=== PATIENT | female | born 1985 | race Caucasian/White ===

== ENCOUNTER 2021-06-19 11:19 | Outpatient (CLI) | payer OTHER, SELFPAY ==
[~2021-06-19] VITALS: Ht 165.1 cm; Wt 61.8 kg
[2021-06-19 11:20] VITALS: BP 129/72
[2021-06-19] MEDS ORDERED: DICY10AM IM (11:56)
[2021-06-19] MEDS ORDERED: BENTYL PO (11:56)
[2021-06-19] MEDS ORDERED: ZOFR4TAB16 PO (11:57)
[2021-06-19] MEDS ORDERED: BUSP10TA PO (11:58)
[2021-06-19] MEDS ORDERED: BACL10TA2 PO (11:58)
[2021-06-19] MEDS ORDERED: CLON0.5T2 PO (11:58)
[2021-06-19] MEDS ORDERED: HYDR-3363 PO (11:59)
[2021-06-19] MEDS ORDERED: VEDOLIZUMAB 300 MG in NS 250 ML IV ONE (12:00)
[2021-06-19] MEDS ORDERED: diphenhydrAMINE 25MG CAP PO ONE (12:00)
[2021-06-19] MEDS ORDERED: ACETAMINOPHEN TAB 650MG DOSE (2X325MG) PO ONE (12:00)
[2021-06-19] MEDS ORDERED: ADDE20CA3 PO (12:01)
[2021-06-19] MEDS ORDERED: ENTY1INJ IV (12:01)
[2021-06-19] MEDS ORDERED: SPIR50TA4 PO (12:01)
[2021-06-19] MEDS ORDERED: MYSO50TA5 PO (12:01)
[2021-06-19] MEDS ORDERED: methylPREDNISolone 40MG 1ML VIAL IV ONE (12:20)
[2021-06-19 14:00] VITALS: BP 111/66
== END 2021-06-19 14:00 | disposition home or self-care (01) ==
LOC: M INFU 11:19
PROVIDERS: ATTEND Internal Medicine Gastroenterology
DX: K50.90 Crohn's disease, unspecified, without complications (principal)
CPT/HCPCS: 96365; 96375; J2920; J3380

== ENCOUNTER 2021-07-31 12:00 | Outpatient (CLI) | payer OTHER ==
[~2021-07-31] VITALS: Ht 165.1 cm; Wt 61.8 kg
[~2021-07-31 12:00] MED LIST: ACETAMINOPHEN TAB 650MG DOSE (2X325MG) PO ONE; ADDE20CA3 PO; BACL10TA2 PO; BENTYL PO; BUSP10TA PO; CLON0.5T2 PO; DICY10AM IM; ENTY1INJ IV; HYDR-3363 PO; MYSO50TA5 PO; SPIR50TA4 PO; VEDOLIZUMAB 300 MG in NS 250 ML IV ONE; ZOFR4TAB16 PO; diphenhydrAMINE 25MG CAP PO ONE; methylPREDNISolone 40MG 1ML VIAL IV ONE
[2021-07-31 12:12] VITALS: BP 119/66
[2021-07-31 13:45] VITALS: BP 108/66
== END 2021-07-31 13:45 | disposition home or self-care (01) ==
LOC: EDUNIT# 12:00 → M INFU 12:00
PROVIDERS: ATTEND Internal Medicine Gastroenterology
DX: K51.90 Ulcerative colitis, unspecified, without complications (principal)
CPT/HCPCS: 96365; 96375; J2920; J3380

== ENCOUNTER 2021-09-11 11:55 | Outpatient (CLI) | payer OTHER ==
[~2021-09-11] VITALS: Ht 165.1 cm; Wt 60.0 kg
[~2021-09-11 11:55] MED LIST changes: -ACETAMINOPHEN TAB 650MG DOSE (2X325MG) PO ONE; -VEDOLIZUMAB 300 MG in NS 250 ML IV ONE; -diphenhydrAMINE 25MG CAP PO ONE; -methylPREDNISolone 40MG 1ML VIAL IV ONE
[2021-09-11] MEDS ORDERED: ACETAMINOPHEN TAB 650MG DOSE (2X325MG) PO ONE (12:00)
[2021-09-11] MEDS ORDERED: VEDOLIZUMAB 300 MG in NS 250 ML IV ONE (12:00)
[2021-09-11] MEDS ORDERED: diphenhydrAMINE 25MG CAP PO ONE (12:00)
[2021-09-11] MEDS ORDERED: methylPREDNISolone 125MG 2ML VIAL IV ONE (12:00)
[2021-09-11 12:18] VITALS: BP 118/61
[2021-09-11 13:24] VITALS: BP 103/68
== END 2021-09-11 13:25 | disposition home or self-care (01) ==
LOC: M INFU 11:55
PROVIDERS: ATTEND Internal Medicine Gastroenterology
DX: K51.90 Ulcerative colitis, unspecified, without complications (principal)
CPT/HCPCS: 96365; 96375; J2930; J3380

== ENCOUNTER 2021-10-23 12:42 | Outpatient (CLI) | payer OTHER ==
[~2021-10-23] VITALS: Ht 165.1 cm; Wt 60.0 kg
[~2021-10-23 12:42] MED LIST changes: +ACETAMINOPHEN TAB 650MG DOSE (2X325MG) PO ONE; +VEDOLIZUMAB 300 MG in NS 250 ML IV ONE; +diphenhydrAMINE 25MG CAP PO ONE; +methylPREDNISolone 40MG 1ML VIAL IV ONE
[2021-10-23 13:00] VITALS: BP 134/74
[2021-10-23] MEDS ORDERED: CYMB1CAP4 PO (13:20)
[2021-10-23 14:00] VITALS: BP 115/56
== END 2021-10-23 14:00 | disposition home or self-care (01) ==
LOC: M INFU 12:42
PROVIDERS: ATTEND Internal Medicine Gastroenterology
DX: K51.90 Ulcerative colitis, unspecified, without complications (principal)
CPT/HCPCS: 96365; 96375; J2920; J3380

== ENCOUNTER 2021-12-04 12:24 | Outpatient (CLI) | payer OTHER ==
[~2021-12-04] VITALS: Ht 165.1 cm; Wt 60.0 kg
[~2021-12-04 12:24] MED LIST changes: -ACETAMINOPHEN TAB 650MG DOSE (2X325MG) PO ONE; +CYMB1CAP4 PO; -VEDOLIZUMAB 300 MG in NS 250 ML IV ONE; -diphenhydrAMINE 25MG CAP PO ONE; -methylPREDNISolone 40MG 1ML VIAL IV ONE
[2021-12-04 12:30] VITALS: BP 113/56
[2021-12-04] MEDS ORDERED: methylPREDNISolone 125MG 2ML VIAL IV ONE (12:30)
[2021-12-04] MEDS ORDERED: diphenhydrAMINE 25MG CAP PO ONE (12:30)
[2021-12-04] MEDS ORDERED: ACETAMINOPHEN TAB 650MG DOSE (2X325MG) PO ONE (12:30)
[2021-12-04] MEDS ORDERED: VEDOLIZUMAB 300 MG in NS 250 ML IV ONE (12:30)
[2021-12-04 13:40] VITALS: BP 115/57
== END 2021-12-04 13:35 | disposition home or self-care (01) ==
LOC: M INFU 12:24
PROVIDERS: ATTEND Internal Medicine Gastroenterology
DX: K51.90 Ulcerative colitis, unspecified, without complications (principal)
CPT/HCPCS: 96365; J2930; J3380

== ENCOUNTER → 2022-01-11 | Outpatient (CLI) | payer OTHER ==
[2022-01-11 13:19] LABS: BASO % 0.4 % (0.0-1.0); EOS % 0.3 % (0.0-3.0); HEMATOCRIT 44.3 % (36.0-47.0); HEMOGLOBIN 14.8 g/dl (12.0-15.5); LYMPH # 1.9 10^3/uL (1.5-5.0); LYMPH % 26.4 % (24.0-44.0); MEAN CORPUSCULAR HEMOGLOBIN 32.9 pg (27.0-33.0); MEAN CORPUSCULAR HGB CONC 33.4 g/dl (32.0-36.5); MEAN CORPUSCULAR VOLUME 98.4 fl (80.0-96.0); MONO # 0.5 10^3/uL (0.0-0.8); MONO % 6.8 % (2.0-8.0); NEUTROPHILS # 4.6 10^3/uL (1.5-8.5); NEUTROPHILS % 65.8 % (36.0-66.0); PLATELET COUNT, AUTOMATED 241 10^3/uL (150-450)
[2022-01-11 13:45] LABS: ERYTHROCYTE SEDIMENTATION RATE 1 mm/hr (0-20)
[2022-01-11 13:55] LABS: ALBUMIN 4.3 GM/DL (3.2-5.2); ALT/SGPT 19 U/L (12-78); BILIRUBIN,TOTAL 0.3 MG/DL (0.2-1.0); BLOOD UREA NITROGEN 14 MG/DL (7-18); CALCIUM LEVEL 9.6 MG/DL (8.5-10.1); CARBON DIOXIDE LEVEL 27 MEQ/L (21-32); CHLORIDE LEVEL 108 MEQ/L (98-107); CREATININE FOR GFR 0.78 MG/DL (0.55-1.30); FREE T4 0.85 NG/DL (0.76-1.46); GLOMERULAR FILTRATION RATE > 60.0 (>60); GLUCOSE, FASTING 63 MG/DL (70-100); POTASSIUM SERUM 4.6 MEQ/L (3.5-5.1); SODIUM LEVEL 140 MEQ/L (136-145); THYROID STIMULATING HORMONE 0.415 uIU/ML (0.358-3.740)
== END ==
LOC: M PLALAB 10:45
PROVIDERS: ATTEND Internal Medicine Gastroenterology
DX: K51.319 Ulcerative (chronic) rectosigmoiditis with unspecified complications (principal)

== ENCOUNTER → 2022-01-12 | Outpatient (REF) | payer OTHER | LOC: M LAB REF 12:58 | PROVIDERS: ATTEND Internal Medicine Gastroenterology | DX: K51.319 Ulcerative (chronic) rectosigmoiditis with unspecified complications (principal) ==

== ENCOUNTER 2022-01-15 12:44 | Outpatient (CLI) | payer OTHER ==
[~2022-01-15] VITALS: Ht 165.1 cm; Wt 62.2 kg
[~2022-01-15 12:44] MED LIST changes: +VEDOLIZUMAB 300 MG in NS 250 ML IV ONE
[2022-01-15 12:55] VITALS: BP 118/64
[2022-01-15 13:15] VITALS: BP 173/86
[2022-01-15 14:30] VITALS: BP_SYST 118; BP_SYST 121; BP_DIAS 64; BP_DIAS 75
== END 2022-01-15 14:30 | disposition home or self-care (01) ==
LOC: M INFU 12:44
PROVIDERS: ATTEND Internal Medicine Gastroenterology
DX: K51.90 Ulcerative colitis, unspecified, without complications (principal)
CPT/HCPCS: 96365; J3380

== ENCOUNTER 2022-02-26 12:09 | Outpatient (CLI) | payer OTHER ==
[~2022-02-26] VITALS: Ht 165.1 cm; Wt 62.2 kg
[~2022-02-26 12:09] MED LIST changes: -VEDOLIZUMAB 300 MG in NS 250 ML IV ONE
[2022-02-26] MEDS ORDERED: VEDOLIZUMAB 300 MG in NS 250 ML IV ONE (12:30)
[2022-02-26 12:40] VITALS: BP 112/66
[2022-02-26 13:22] VITALS: BP 130/69
== END 2022-02-26 13:20 | disposition home or self-care (01) ==
LOC: M INFU 12:09
PROVIDERS: ATTEND Internal Medicine Gastroenterology
DX: K51.90 Ulcerative colitis, unspecified, without complications (principal)
CPT/HCPCS: 96365; J3380

== ENCOUNTER → 2022-04-09 | Outpatient (CLI) | payer OTHER ==
[~2022-04-09] MED LIST changes: +VEDOLIZUMAB 300 MG in NS 250 ML IV ONE
[2022-04-09 12:10] VITALS: BP 128/64
[2022-04-09 13:10] VITALS: BP 109/55
== END ==
LOC: M INFU 12:00
PROVIDERS: ATTEND Internal Medicine Gastroenterology
DX: K51.919 Ulcerative colitis, unspecified with unspecified complications (principal); Z88.0 Allergy status to penicillin; Z88.2 Allergy status to sulfonamides
CPT/HCPCS: 96365; J3380

== ENCOUNTER 2022-05-22 11:20 | Outpatient (CLI) | payer OTHER ==
[~2022-05-22] VITALS: Ht 165.1 cm; Wt 62.2 kg
[~2022-05-22 11:20] MED LIST changes: -VEDOLIZUMAB 300 MG in NS 250 ML IV ONE
[2022-05-22] MEDS ORDERED: VEDOLIZUMAB 300 MG in NS 250 ML IV ONE (11:30)
[2022-05-22 11:35] VITALS: BP 128/71
[2022-05-22 12:09] VITALS: BP 130/62
== END 2022-05-22 12:10 | disposition home or self-care (01) ==
LOC: M INFU 11:20
PROVIDERS: ATTEND Internal Medicine Gastroenterology
DX: K51.90 Ulcerative colitis, unspecified, without complications (principal)
CPT/HCPCS: 96365; J3380

== ENCOUNTER 2022-07-02 11:30 | Outpatient (CLI) | payer OTHER ==
[~2022-07-02] VITALS: Ht 167.6 cm; Wt 62.2 kg
[~2022-07-02 11:30] MED LIST changes: +VEDOLIZUMAB 300 MG in NS 250 ML IV ONE
[2022-07-02 11:39] VITALS: BP 129/71
[2022-07-02 12:28] VITALS: BP 112/66
== END 2022-07-02 12:30 | disposition home or self-care (01) ==
LOC: M INFU 11:30
PROVIDERS: ATTEND Internal Medicine Gastroenterology
DX: K51.30 Ulcerative (chronic) rectosigmoiditis without complications (principal)
CPT/HCPCS: 96365; J3380

== ENCOUNTER 2022-08-13 11:35 | Outpatient (CLI) | payer OTHER ==
[~2022-08-13] VITALS: Ht 167.6 cm; Wt 62.2 kg
[2022-08-13 11:35] VITALS: BP 131/60
[~2022-08-13 11:35] MED LIST changes: -VEDOLIZUMAB 300 MG in NS 250 ML IV ONE
[2022-08-13] MEDS ORDERED: VEDOLIZUMAB 300 MG in NS 250 ML IV ONE (12:00)
[2022-08-13 12:46] VITALS: BP 122/63
== END 2022-08-13 12:45 | disposition home or self-care (01) ==
LOC: M INFU 11:35
PROVIDERS: ATTEND Internal Medicine Gastroenterology
DX: K51.90 Ulcerative colitis, unspecified, without complications (principal)
CPT/HCPCS: 96365; J3380

== ENCOUNTER 2022-09-24 11:45 | Outpatient (CLI) | payer OTHER ==
[~2022-09-24] VITALS: Ht 167.6 cm; Wt 62.2 kg
[2022-09-24 11:45] VITALS: BP 132/61
[2022-09-24] MEDS ORDERED: VEDOLIZUMAB 300 MG in NS 250 ML IV ONE (12:00)
[2022-09-24 13:15] VITALS: BP 128/62
== END 2022-09-24 13:15 | disposition home or self-care (01) ==
LOC: M INFU 11:45
PROVIDERS: ATTEND Internal Medicine Gastroenterology
DX: K51.90 Ulcerative colitis, unspecified, without complications (principal)
CPT/HCPCS: 96365; J3380

== ENCOUNTER 2022-11-08 08:30 | Outpatient (CLI) | payer OTHER ==
[~2022-11-08] VITALS: Ht 167.6 cm; Wt 62.0 kg
[~2022-11-08 08:30] MED LIST changes: +VEDOLIZUMAB 300 MG in NS 250 ML IV ONE
[2022-11-08 08:40] VITALS: BP 145/65
[2022-11-08 10:20] VITALS: BP 129/59
== END 2022-11-08 10:20 | disposition home or self-care (01) ==
LOC: M INFU 08:30
PROVIDERS: ATTEND Internal Medicine Gastroenterology
DX: K51.90 Ulcerative colitis, unspecified, without complications (principal); Z88.0 Allergy status to penicillin; Z88.2 Allergy status to sulfonamides
CPT/HCPCS: 96365; J3380

== ENCOUNTER 2022-12-17 12:00 | Outpatient (CLI) | payer OTHER ==
[~2022-12-17] VITALS: Ht 165.1 cm; Wt 62.2 kg
[2022-12-17 12:00] VITALS: BP 122/83
[2022-12-17] MEDS ORDERED: EFFE150C2 PO (12:23)
[2022-12-17] MEDS ORDERED: GABA-1171 PO (12:26)
[2022-12-17 13:00] VITALS: BP 127/71
== END 2022-12-17 13:00 | disposition home or self-care (01) ==
LOC: M INFU 12:00
PROVIDERS: ATTEND Internal Medicine Gastroenterology
DX: K51.30 Ulcerative (chronic) rectosigmoiditis without complications (principal); Z88.0 Allergy status to penicillin; Z88.2 Allergy status to sulfonamides
CPT/HCPCS: 96365; J3380

== ENCOUNTER 2023-01-28 10:39 | Outpatient (CLI) | payer OTHER ==
[~2023-01-28] VITALS: Ht 165.1 cm; Wt 63.5 kg
[~2023-01-28 10:39] MED LIST changes: +EFFE150C2 PO; +GABA-1171 PO
[2023-01-28 10:45] VITALS: BP 126/79
[2023-01-28 12:05] VITALS: BP 134/84
== END 2023-01-28 12:05 ==
LOC: M INFU 10:39
PROVIDERS: ATTEND Internal Medicine Gastroenterology
DX: K51.30 Ulcerative (chronic) rectosigmoiditis without complications (principal)
CPT/HCPCS: 96365; J3380

== ENCOUNTER 2023-03-11 10:42 | Outpatient (CLI) | payer OTHER ==
[~2023-03-11] VITALS: Ht 165.1 cm; Wt 63.0 kg
[~2023-03-11 10:42] MED LIST changes: +VEDOLIZUMAB 300 MG in NS 250 ML IV ONE
[2023-03-11 10:55] VITALS: BP 132/76; O2SAT 100
[2023-03-11 11:20] LABS: BASO % 0.4 % (0.0-1.0); EOS # 0.1 10^3/uL (0.0-0.5); EOS % 0.7 % (0.0-3.0); HEMATOCRIT 41.2 % (36.0-47.0); HEMOGLOBIN 14.3 g/dl (12.0-15.5); LYMPH # 2.6 10^3/uL (1.5-5.0); LYMPH % 27.9 % (24.0-44.0); MEAN CORPUSCULAR HEMOGLOBIN 33.2 pg (27.0-33.0); MEAN CORPUSCULAR HGB CONC 34.7 g/dl (32.0-36.5); MEAN CORPUSCULAR VOLUME 95.6 fl (80.0-96.0); MONO # 0.6 10^3/uL (0.0-0.8); MONO % 6.6 % (2.0-8.0); NEUTROPHILS % 63.9 % (36.0-66.0); PLATELET COUNT, AUTOMATED 238 10^3/uL (150-450); RED BLOOD COUNT 4.31 10^6/uL (4.00-5.40); WHITE BLOOD COUNT 9.3 10^3/uL (4.0-10.0)
[2023-03-11 11:27] LABS: ERYTHROCYTE SEDIMENTATION RATE < 1 mm/hr (0-20)
[2023-03-11 11:40] VITALS: BP 126/77; O2SAT 97
[2023-03-11 11:46] LABS: C REACTIVE PROTEIN QUANTITATIV < 0.40 MG/DL (<1.0)
[2023-03-11 11:47] LABS: ALBUMIN 4.1 G/DL (3.2-5.2); ALKALINE PHOSPHATASE 45 U/L (46-116); ALT/SGPT 18 U/L (7.0-40); AST/SGOT 16 U/L (<34); BILIRUBIN,TOTAL 0.8 MG/DL (0.3-1.2); BLOOD UREA NITROGEN 13 MG/DL (9-23); CARBON DIOXIDE LEVEL 25 MMOL/L (20-31); CHLORIDE LEVEL 101 MMOL/L (98-107); CREATININE FOR GFR 0.69 MG/DL (0.55-1.30); GLOMERULAR FILTRATION RATE > 60.0 (>60); GLUCOSE, FASTING 90 MG/DL (60-100); POTASSIUM SERUM 3.9 MMOL/L (3.5-5.1); SODIUM LEVEL 134 MMOL/L (136-145); TOTAL PROTEIN 6.8 G/DL (5.7-8.2)
== END 2023-03-11 11:50 ==
LOC: M INFU 10:42
PROVIDERS: ATTEND Internal Medicine Gastroenterology
DX: K51.30 Ulcerative (chronic) rectosigmoiditis without complications (principal); Z88.0 Allergy status to penicillin; Z88.2 Allergy status to sulfonamides
CPT/HCPCS: 36592; 80053; 83993; 85025; 85652; 86140; 96365; J3380

== ENCOUNTER → 2023-03-11 | Outpatient (REF) | payer OTHER ==
[~2023-03-11] MED LIST changes: -VEDOLIZUMAB 300 MG in NS 250 ML IV ONE
== END ==
LOC: M LAB REF 11:22
PROVIDERS: ATTEND Internal Medicine Gastroenterology
DX: K51.30 Ulcerative (chronic) rectosigmoiditis without complications (principal)

== ENCOUNTER → 2023-04-18 | Outpatient (CLI) | payer OTHER ==
[~2023-04-18] MED LIST changes: -VEDOLIZUMAB 300 MG in NS 250 ML IV ONE
[2023-04-18 14:38] LABS: BASO # 0.1 10^3/uL (0.0-0.2); BASO % 0.5 % (0.0-1.0); EOS % 0.4 % (0.0-3.0); HEMATOCRIT 46.6 % (36.0-47.0); HEMOGLOBIN 15.6 g/dl (12.0-15.5); LYMPH # 2.8 10^3/uL (1.5-5.0); MEAN CORPUSCULAR HEMOGLOBIN 32.8 pg (27.0-33.0); MEAN CORPUSCULAR HGB CONC 33.5 g/dl (32.0-36.5); MEAN CORPUSCULAR VOLUME 97.9 fl (80.0-96.0); MONO # 0.7 10^3/uL (0.0-0.8); MONO % 7.5 % (2.0-8.0); PLATELET COUNT, AUTOMATED 256 10^3/uL (150-450); RED BLOOD COUNT 4.76 10^6/uL (4.00-5.40); WHITE BLOOD COUNT 9.7 10^3/uL (4.0-10.0)
[2023-04-18 15:01] LABS: C REACTIVE PROTEIN QUANTITATIV < 0.40 MG/DL (<1.0)
[2023-04-18 15:03] LABS: RHEUMATOID FACTOR QUANT 6.3 IU/ML (<14)
[2023-04-18 15:15] LABS: ERYTHROCYTE SEDIMENTATION RATE 6 mm/hr (0-20)
== END ==
LOC: M PLALAB 11:06
PROVIDERS: ATTEND Physician Assistant
DX: M50.122 Cervical disc disorder at C5-C6 level with radiculopathy (principal)

== ENCOUNTER 2023-04-22 10:20 | Outpatient (CLI) | payer OTHER ==
[2023-04-22 10:20] VITALS: BP 122/70; O2SAT 99
[2023-04-22] MEDS ORDERED: VEDOLIZUMAB 300 MG in NS 250 ML IV ONE (10:30)
[2023-04-22 11:20] VITALS: BP 131/77; O2SAT 100
== END 2023-04-22 11:20 | disposition home or self-care (01) ==
LOC: M INFU 10:20
PROVIDERS: ATTEND Internal Medicine Gastroenterology
DX: K51.90 Ulcerative colitis, unspecified, without complications (principal); Z88.0 Allergy status to penicillin; Z88.2 Allergy status to sulfonamides
CPT/HCPCS: 96365; J3380

== ENCOUNTER 2023-07-16 16:58 | Outpatient (CLI) | payer OTHER ==
[~2023-07-16] VITALS: Ht 165.1 cm; Wt 72.0 kg
[~2023-07-16 16:58] MED LIST changes: +VEDOLIZUMAB 300 MG in NS 250 ML IV ONE
[2023-07-16] MEDS ORDERED: VEDOLIZUMAB 300 MG in NS 250 ML IV ONE (17:00)
[2023-07-16 17:05] VITALS: BP 150/83; O2SAT 99
[2023-07-16 18:18] VITALS: BP 136/69; O2SAT 97
== END 2023-07-16 18:20 ==
LOC: M INFU 16:58
PROVIDERS: ATTEND Internal Medicine Gastroenterology
DX: K51.90 Ulcerative colitis, unspecified, without complications (principal)
CPT/HCPCS: 96365; J3380

== ENCOUNTER 2023-09-02 16:10 | Outpatient (CLI) | payer OTHER ==
[~2023-09-02] VITALS: Ht 165.1 cm; Wt 68.2 kg
[~2023-09-02 16:10] MED LIST changes: -EFFE150C2 PO; +EFFE150C3 PO
[2023-09-02 16:19] VITALS: BP 122/70; O2SAT 98
[2023-09-02] MEDS ORDERED: VEDOLIZUMAB 300 MG in NS 250 ML IV ONE (17:30)
[2023-09-02 18:14] VITALS: BP 117/68; O2SAT 91
== END 2023-09-02 18:15 ==
LOC: M INFU 16:10
PROVIDERS: ATTEND Internal Medicine Gastroenterology
DX: K51.90 Ulcerative colitis, unspecified, without complications (principal)
CPT/HCPCS: 96365; J3380

== ENCOUNTER 2023-10-14 16:40 | Outpatient (CLI) | payer OTHER ==
[~2023-10-14] VITALS: Ht 165.1 cm; Wt 66.0 kg
[2023-10-14 16:50] VITALS: BP 117/65; O2SAT 96
[2023-10-14 17:49] VITALS: BP 120/80; O2SAT 97
== END 2023-10-14 17:50 | disposition home or self-care (01) ==
LOC: M INFU 16:40
PROVIDERS: ATTEND Internal Medicine Gastroenterology
DX: K51.90 Ulcerative colitis, unspecified, without complications (principal); Z88.0 Allergy status to penicillin; Z88.2 Allergy status to sulfonamides
CPT/HCPCS: 96365; J3380

== ENCOUNTER 2023-11-25 16:30 | Outpatient (CLI) | payer OTHER ==
[~2023-11-25] VITALS: Ht 165.1 cm; Wt 65.5 kg
[~2023-11-25 16:30] MED LIST changes: -VEDOLIZUMAB 300 MG in NS 250 ML IV ONE
[2023-11-25] MEDS: VEDOLIZUMAB 300 MG in NS 250 ML IV ONE (16:53)
[2023-11-25 16:58] VITALS: BP 127/82; O2SAT 97
[2023-11-25 17:33] VITALS: BP 127/72; O2SAT 99
== END 2023-11-25 17:35 ==
LOC: M INFU 16:30
PROVIDERS: ATTEND Internal Medicine Gastroenterology
DX: K51.919 Ulcerative colitis, unspecified with unspecified complications (principal)
CPT/HCPCS: 96365; J3380

== ENCOUNTER 2024-01-06 16:24 | Outpatient (CLI) | payer OTHER ==
[~2024-01-06] VITALS: Ht 165.1 cm; Wt 65.0 kg
[2024-01-06 16:32] VITALS: BP 125/77; TEMP 97.5; O2SAT 99
[2024-01-06] MEDS: VEDOLIZUMAB 300 MG in NS 250 ML IV ONE (16:45)
[2024-01-06 17:20] VITALS: BP 125/72; TEMP 97.3; O2SAT 100
== END 2024-01-06 17:20 ==
LOC: M INFU 16:24
PROVIDERS: ATTEND Internal Medicine Gastroenterology
DX: K51.919 Ulcerative colitis, unspecified with unspecified complications (principal)
CPT/HCPCS: 96365; J3380

== ENCOUNTER 2024-02-17 16:35 | Outpatient (CLI) | payer OTHER ==
[~2024-02-17] VITALS: Ht 162.6 cm; Wt 68.2 kg
[2024-02-17 16:35] VITALS: BP 135/75; O2SAT 99
[2024-02-17] MEDS: VEDOLIZUMAB 300 MG in NS 250 ML IV ONE (17:00)
[2024-02-17 17:42] VITALS: BP 129/68; O2SAT 100
== END 2024-02-17 17:45 ==
LOC: M INFU 16:35
PROVIDERS: ATTEND Internal Medicine Gastroenterology
DX: K51.90 Ulcerative colitis, unspecified, without complications (principal)
CPT/HCPCS: 96365; J3380

== ENCOUNTER 2024-03-30 16:35 | Outpatient (CLI) | payer OTHER ==
[~2024-03-30] VITALS: Ht 162.6 cm; Wt 65.5 kg
[2024-03-30 16:30] VITALS: BP 119/71; O2SAT 99
[2024-03-30] MEDS: VEDOLIZUMAB 300 MG in NS 250 ML IV ONE (16:54)
[2024-03-30 17:30] VITALS: BP 116/82; O2SAT 98
[2024-04-03] MEDS ORDERED: ESSETAB4 PO (14:13)
== END 2024-03-30 17:30 ==
LOC: M INFU 16:35
PROVIDERS: ATTEND Internal Medicine Gastroenterology
DX: K51.90 Ulcerative colitis, unspecified, without complications (principal)
CPT/HCPCS: 96365; J3380

== ENCOUNTER → 2024-04-02 | Outpatient (CLI) | payer OTHER ==
[~2024-04-02] MED LIST changes: +ESSETAB4 PO
[2024-04-02 12:13] LABS: BASO % 0.4 % (0.0-1.0); EOS # 0.1 10^3/uL (0.0-0.5); EOS % 0.5 % (0.0-3.0); HEMATOCRIT 46.4 % (36.0-47.0); HEMOGLOBIN 16.2 g/dl (12.0-15.5); LYMPH # 1.8 10^3/uL (1.5-5.0); LYMPH % 19.5 % (24.0-44.0); MEAN CORPUSCULAR HEMOGLOBIN 34.6 pg (27.0-33.0); MEAN CORPUSCULAR HGB CONC 34.9 g/dl (32.0-36.5); MEAN CORPUSCULAR VOLUME 99.1 fl (80.0-96.0); MONO # 0.5 10^3/uL (0.0-0.8); MONO % 5.5 % (2.0-8.0); NEUTROPHILS # 6.9 10^3/uL (1.5-8.5); NEUTROPHILS % 73.6 % (36.0-66.0); PLATELET COUNT, AUTOMATED 286 10^3/uL (150-450); RED BLOOD COUNT 4.68 10^6/uL (4.00-5.40); WHITE BLOOD COUNT 9.4 10^3/uL (4.0-10.0)
[2024-04-02 12:35] LABS: ERYTHROCYTE SEDIMENTATION RATE 2 mm/hr (0-20)
[2024-04-02 12:46] LABS: C REACTIVE PROTEIN QUANTITATIV < 0.40 MG/DL (<1.0)
[2024-04-02 12:48] LABS: ALBUMIN 4.5 G/DL (3.2-5.2); ALKALINE PHOSPHATASE 57 U/L (46-116); ALT/SGPT 24 U/L (7.0-40); AST/SGOT 19 U/L (<34); BILIRUBIN,TOTAL 0.7 MG/DL (0.3-1.2); BLOOD UREA NITROGEN 17 MG/DL (9-23); CARBON DIOXIDE LEVEL 28 MMOL/L (20-31); CHLORIDE LEVEL 102 MMOL/L (98-107); GLOMERULAR FILTRATION RATE > 60.0 (>60); GLUCOSE, FASTING 83 MG/DL (60-100); POTASSIUM SERUM 4.9 MMOL/L (3.5-5.1); SODIUM LEVEL 135 MMOL/L (136-145); TOTAL PROTEIN 7.7 G/DL (5.7-8.2)
== END ==
LOC: M LAB 11:33
PROVIDERS: ATTEND Internal Medicine Gastroenterology
DX: K51.30 Ulcerative (chronic) rectosigmoiditis without complications (principal)

== ENCOUNTER 2024-05-11 16:30 | Outpatient (CLI) | payer OTHER ==
[~2024-05-11] VITALS: Ht 165.1 cm; Wt 65.9 kg
[2024-05-11 16:46] VITALS: BP 133/78; O2SAT 97
[2024-05-11] MEDS: VEDOLIZUMAB 300 MG in NS 250 ML IV ONE (16:55)
[2024-05-11 17:29] VITALS: BP 129/68; O2SAT 100
== END 2024-05-11 17:34 ==
LOC: M INFU 16:30
PROVIDERS: ATTEND Internal Medicine Gastroenterology
DX: K51.90 Ulcerative colitis, unspecified, without complications (principal); Z88.1 Allergy status to other antibiotic agents; Z88.2 Allergy status to sulfonamides
CPT/HCPCS: 96365; J3380

== ENCOUNTER 2024-06-25 11:20 | Outpatient (CLI) | payer OTHER ==
[~2024-06-25] VITALS: Ht 165.1 cm; Wt 67.7 kg
[2024-06-25 11:30] VITALS: BP 136/83; O2SAT 97
[2024-06-25] MEDS: VEDOLIZUMAB 300 MG in LR 250 ML IV ONE (12:03)
[2024-06-25 12:40] VITALS: BP 124/89; O2SAT 98
[2024-06-29] MEDS ORDERED: ONDA-83 PO (08:03)
[2024-06-29] MEDS ORDERED: CONC36TA4 PO (08:03)
== END 2024-06-25 12:40 ==
LOC: M INFU 11:20
PROVIDERS: ATTEND Internal Medicine Gastroenterology
DX: K51.919 Ulcerative colitis, unspecified with unspecified complications (principal); Z88.1 Allergy status to other antibiotic agents; Z88.2 Allergy status to sulfonamides
CPT/HCPCS: 96365; J3380

== ENCOUNTER 2024-07-13 06:44 | Day surgery (SDC) | payer OTHER ==
[~2024-07-13] VITALS: Ht 163.8 cm; Wt 83.0 kg
[~2024-07-13 06:44] MED LIST changes: +CONC36TA4 PO; +NS 250 ML IV ONE; +ONDA-83 PO
[2024-07-13] MEDS ORDERED: propofoL 200 MG/20 ML VIAL As Ordered ONE (07:08)
[2024-07-13] MEDS ORDERED: dexmedeTOMIDine (4MCG/ML)200MCG/50ML BTL (PRECEDEX) As Ordered ONE (07:08)
[2024-07-13] MEDS ORDERED: LIDOCAINE 2% 100MG/5ML SDV (FOR ANES.) As Ordered ONE (07:08)
[2024-07-13 07:56] VITALS: TEMP 96.9
[2024-07-13 08:18] VITALS: BP 111/67; O2SAT 99
== END 2024-07-13 08:19 | disposition home or self-care (01) ==
LOC: M OPP 06:44
PROVIDERS: ATTEND Internal Medicine Gastroenterology
DX: K51.50 Left sided colitis without complications (principal); K21.9 Gastro-esophageal reflux disease without esophagitis; Z79.899 Other long term (current) drug therapy; Z90.710 Acquired absence of both cervix and uterus; F90.9 Attention-deficit hyperactivity disorder, unspecified type; F17.210 Nicotine dependence, cigarettes, uncomplicated; Z88.1 Allergy status to other antibiotic agents; Z88.2 Allergy status to sulfonamides

== ENCOUNTER 2024-08-06 11:28 | Outpatient (CLI) | payer OTHER ==
[~2024-08-06] VITALS: Ht 162.6 cm; Wt 65.5 kg
[~2024-08-06 11:28] MED LIST changes: -NS 250 ML IV ONE
[2024-08-06 11:35] VITALS: BP 138/75; O2SAT 100
[2024-08-06] MEDS: VEDOLIZUMAB 300 MG in NS 250 ML IV ONE (12:29)
[2024-08-06 13:10] VITALS: BP 129/70; O2SAT 97
== END 2024-08-06 13:08 | disposition home or self-care (01) ==
LOC: M INFU 11:28
PROVIDERS: ATTEND Internal Medicine Gastroenterology
DX: K51.90 Ulcerative colitis, unspecified, without complications (principal); Z88.1 Allergy status to other antibiotic agents; Z88.2 Allergy status to sulfonamides
CPT/HCPCS: 96365; J3380

== ENCOUNTER 2024-09-17 11:09 | Outpatient (CLI) | payer OTHER ==
[~2024-09-17] VITALS: Ht 165.1 cm; Wt 68.2 kg
[2024-09-17 11:20] VITALS: BP 119/65; O2SAT 99
[2024-09-17] MEDS: VEDOLIZUMAB 300 MG in NS 250 ML IV ONE (12:22)
[2024-09-17 13:00] VITALS: BP 118/63; O2SAT 98
== END 2024-09-17 13:00 ==
LOC: M INFU 11:09
PROVIDERS: ATTEND Internal Medicine Gastroenterology
DX: K51.90 Ulcerative colitis, unspecified, without complications (principal); Z88.1 Allergy status to other antibiotic agents; Z88.2 Allergy status to sulfonamides
CPT/HCPCS: 96365; J3380

== ENCOUNTER → 2024-10-01 | Outpatient (REF) | LOC: M LAB 12:48 | PROVIDERS: ATTEND Family Medicine | DX: Z00.00 Encounter for general adult medical examination without abnormal findings (principal) ==

== ENCOUNTER 2024-11-06 13:50 | Outpatient (CLI) | payer OTHER ==
[~2024-11-06] VITALS: Ht 162.6 cm; Wt 65.5 kg
[2024-11-06 13:50] VITALS: BP 134/82; O2SAT 100
[2024-11-06] MEDS: VEDOLIZUMAB 300 MG in NS 250 ML IV ONE (14:48)
[2024-11-06 15:25] VITALS: BP 124/67; O2SAT 100
== END 2024-11-06 15:25 | disposition home or self-care (01) ==
LOC: M INFU 13:50
PROVIDERS: ATTEND Internal Medicine Gastroenterology
DX: K51.90 Ulcerative colitis, unspecified, without complications (principal); Z88.1 Allergy status to other antibiotic agents; Z88.2 Allergy status to sulfonamides
CPT/HCPCS: 96365; J3380

== ENCOUNTER 2024-12-18 14:00 | Outpatient (CLI) | payer OTHER ==
[~2024-12-18] VITALS: Ht 162.6 cm; Wt 70.2 kg
[2024-12-18 14:00] VITALS: BP 128/89; O2SAT 100
[2024-12-18] MEDS: VEDOLIZUMAB 300 MG in NS 250 ML IV ONE (14:54)
[2024-12-18 15:28] VITALS: BP 119/75; O2SAT 99
== END 2024-12-18 15:50 ==
LOC: M INFU 14:00
PROVIDERS: ATTEND Internal Medicine Gastroenterology
DX: K51.90 Ulcerative colitis, unspecified, without complications (principal); Z88.1 Allergy status to other antibiotic agents; Z88.2 Allergy status to sulfonamides
CPT/HCPCS: 96365; J3380

== ENCOUNTER 2025-01-29 13:41 | Outpatient (CLI) | payer OTHER ==
[~2025-01-29] VITALS: Ht 162.6 cm; Wt 70.0 kg
[2025-01-29 14:00] VITALS: BP 129/74; O2SAT 98
[2025-01-29] MEDS: VEDOLIZUMAB 300 MG in NS 250 ML IV ONE (14:37)
[2025-01-29 15:15] VITALS: BP 116/72; O2SAT 98
== END 2025-01-29 15:30 | disposition home or self-care (01) ==
LOC: M INFU 13:41
PROVIDERS: ATTEND Internal Medicine Gastroenterology
DX: K51.90 Ulcerative colitis, unspecified, without complications (principal); Z88.1 Allergy status to other antibiotic agents; Z88.2 Allergy status to sulfonamides
CPT/HCPCS: 96365; J3380

== ENCOUNTER 2025-03-23 13:22 | Outpatient (CLI) | payer OTHER ==
[~2025-03-23] VITALS: Ht 165.1 cm; Wt 70.9 kg
[~2025-03-23 13:22] MED LIST changes: +VEDOLIZUMAB 300 MG in NS 250 ML IV ONE
[2025-03-23 13:30] VITALS: BP 126/62; O2SAT 99
[2025-03-23] MEDS: VEDOLIZUMAB 300 MG in NS 250 ML IV ONE (14:29)
[2025-03-23 15:05] VITALS: BP 122/71; O2SAT 100
== END 2025-03-23 15:05 ==
LOC: M INFU 13:22
PROVIDERS: ATTEND Internal Medicine Gastroenterology
DX: K51.90 Ulcerative colitis, unspecified, without complications (principal); Z88.1 Allergy status to other antibiotic agents; Z88.2 Allergy status to sulfonamides
CPT/HCPCS: 96365; J3380

== ENCOUNTER → 2025-04-27 | Outpatient (CLI) | payer OTHER ==
[~2025-04-27] MED LIST changes: -VEDOLIZUMAB 300 MG in NS 250 ML IV ONE
== END ==
LOC: M WHC 13:01
PROVIDERS: ATTEND Internal Medicine
DX: Z12.31 Encounter for screening mammogram for malignant neoplasm of breast (principal); R92.333 Mammographic heterogeneous density, bilateral breasts; N63.10 Unspecified lump in the right breast, unspecified quadrant

== ENCOUNTER 2025-05-03 13:23 | Outpatient (CLI) | payer OTHER ==
[~2025-05-03] VITALS: Ht 162.6 cm; Wt 70.5 kg
[2025-05-03 13:45] VITALS: BP 129/83; O2SAT 98
[2025-05-03] MEDS: VEDOLIZUMAB 300 MG in NS 250 ML IV ONE (14:51)
[2025-05-03 15:25] VITALS: BP 133/75; O2SAT 100
== END 2025-05-03 15:25 | disposition home or self-care (01) ==
LOC: M INFU 13:23
PROVIDERS: ATTEND Internal Medicine Gastroenterology
DX: K51.90 Ulcerative colitis, unspecified, without complications (principal); Z88.1 Allergy status to other antibiotic agents; Z88.2 Allergy status to sulfonamides
CPT/HCPCS: 96365; J3380

== ENCOUNTER → 2025-05-06 | Outpatient (CLI) | payer OTHER | LOC: M WHC 10:19 | PROVIDERS: ATTEND Internal Medicine | DX: R92.8 Other abnormal and inconclusive findings on diagnostic imaging of breast (principal); N60.12 Diffuse cystic mastopathy of left breast; R92.331 Mammographic heterogeneous density, right breast; N60.11 Diffuse cystic mastopathy of right breast | CPT/HCPCS: 76641; 76642; 77065; G0279 ==

== ENCOUNTER 2025-06-14 13:42 | Outpatient (CLI) | payer OTHER ==
[~2025-06-14] VITALS: Ht 165.1 cm; Wt 70.5 kg
[2025-06-14 13:45] VITALS: BP 118/58; O2SAT 98
[2025-06-14] MEDS: VEDOLIZUMAB 300 MG in NS 250 ML IV ONE (14:27)
[2025-06-14 15:02] VITALS: BP 126/65; O2SAT 100
== END 2025-06-14 15:10 | disposition home or self-care (01) ==
LOC: M INFU 13:42
PROVIDERS: ATTEND Internal Medicine Gastroenterology
DX: K51.90 Ulcerative colitis, unspecified, without complications (principal); Z88.1 Allergy status to other antibiotic agents; Z88.2 Allergy status to sulfonamides
CPT/HCPCS: 96365; J3380

== ENCOUNTER 2025-07-26 14:05 | Outpatient (CLI) | payer OTHER ==
[~2025-07-26] VITALS: Ht 162.6 cm; Wt 70.5 kg
[2025-07-26 14:26] VITALS: BP 133/69; O2SAT 99
[2025-07-26] MEDS: VEDOLIZUMAB 300 MG in NS 250 ML IV ONE (14:35)
[2025-07-26 15:10] VITALS: BP 138/79; O2SAT 99
== END 2025-07-26 15:10 | disposition home or self-care (01) ==
LOC: M INFU 14:05
PROVIDERS: ATTEND Internal Medicine Gastroenterology
DX: K51.30 Ulcerative (chronic) rectosigmoiditis without complications (principal); Z88.1 Allergy status to other antibiotic agents; Z88.2 Allergy status to sulfonamides
CPT/HCPCS: 96365; J3380